=== PATIENT | female | born 1990 | race Caucasian/White ===

== ENCOUNTER 2021-05-10 06:35 | Inpatient (IN) | payer OTHER ==
[2021-05-10] MEDS: DEXTROSE 5%-LACTATED RINGERS 1,000 ML IV SCH (07:35)
[2021-05-10] MEDS ORDERED: AMPICILLIN SODIUM 2 GM VIAL ONE (07:37)
[2021-05-10 08:27] VITALS: BMI 26.8
[2021-05-10] MEDS ORDERED: PROMETHAZINE HCL 25 MG/1 ML VIAL ONE (08:59)
[2021-05-10] MEDS ORDERED: BUTORPHANOL TARTRATE 2 MG/ML VIAL ONE (08:59)
[2021-05-10] MEDS ORDERED: PROMETHAZINE HCL 25 MG/1 ML VIAL IVPUSH ONE (09:02)
[2021-05-10] MEDS ORDERED: BUTORPHANOL TARTRATE 1 MG/ML VIAL IVPUSH ONE (09:02)
[2021-05-10] MEDS ORDERED: AMPICILLIN - 2 GM in SODIUM CHLORIDE 100 ML IVPB ONE (09:04)
[2021-05-10] MEDS ORDERED: OXYTOCIN 20 UNITS in 0.9% NS 20 UNIT/1,000 ML INFUS.BAG IV ONE (09:07)
[2021-05-10] MEDS ORDERED: OXYTOCIN 30 UNITS in 0.9% NS 30 UNIT/500 ML INFUS.BAG IVPB ONE (10:00)
[2021-05-10] MEDS ORDERED: OXYTOCIN 30 UNITS in 0.9% NS 30 UNIT/500 ML INFUS.BAG IVPB SCH (10:15)
[2021-05-10 10:18] LABS: BASO % 0.2 % (0-2.0); EOS % 0.2 % (0-4.5); HEMATOCRIT 31.5 % (32.4-45.2); HEMOGLOBIN 10.4 GM/dL (10.7-15.3); LYMPH % 15.9 % (8-40); MCH 27.5 pg (25.7-33.7); MEAN CELL VOLUME 83.4 fl (80-96); MEAN PLT VOLUME 8.2 fl (7.5-11.1); MONO % 4.2 % (3.8-10.2); NEUT % 79.5 % (42.8-82.8); PLATELET COUNT 367 10^3/uL (134-434); RBC 3.78 M/mm3 (3.60-5.2); RDW 17.1 % (11.6-15.6); WHITE BLOOD COUNT 10.1 K/mm3 (4.0-10.0)
[2021-05-10 10:26] LABS: INR 0.92 (0.83-1.09); PROTHROMBIN TIME (PATIENT) 10.6 SEC (9.7-13.0)
[2021-05-10 10:29] LABS: ACTIVATED PTT 24.4 SECONDS (25.2-36.5)
[2021-05-10 10:37] LABS: CALCIUM 8.5 mg/dL (8.5-10.1)
[2021-05-10 10:38] LABS: BLOOD UREA NITROGEN 11.3 mg/dL (7-18)
[2021-05-10 10:41] LABS: CREATININE 0.6 mg/dL (0.55-1.3)
[2021-05-10] MEDS ORDERED: AMPICILLIN SODIUM 1 GM VIAL ONE (10:41)
[2021-05-10] MEDS ORDERED: AMPICILLIN - 1 GM in SODIUM CHLORIDE 100 ML IVPB ONE (13:02)
[2021-05-10] MEDS ORDERED: ACETAMINOPHEN 325 MG TABLET (FP) PO PRN (13:03)
[2021-05-10] MEDS ORDERED: METHYLERGONOVINE MALEATE 0.2 MG/1 ML AMP IM PRN (13:03)
[2021-05-10] MEDS ORDERED: BENZOCAINE 28 GM HEMORRHOIDAL OINTMENT TP PRN (13:03)
[2021-05-10] MEDS ORDERED: BENZOCAINE 20% 57 GM BOTTLE TP PRN (13:03)
[2021-05-10] MEDS ORDERED: WITCH HAZEL 50% (TUCKS) 40 PAD/JAR PAD TP PRN (13:03)
[2021-05-10] MEDS ORDERED: oxyCODONE HCL 5 MG TABLET PO PRN (13:03)
[2021-05-10] MEDS ORDERED: BISACODYL 10 MG SUPP.RECT RC PRN (13:03)
[2021-05-10] MEDS ORDERED: OXYTOCIN 20 UNITS in 0.9% NS 20 UNIT/1,000 ML INFUS.BAG IV SCH (13:15)
[2021-05-10 13:46] LABS: CORD BASE EXCESS -5.2 mmol/L (0-2); CORD HCO3 22.7 mmHg (20-29); CORD PCO2 53.3 mmHg (30-78); CORD pH 7.248 (7.14-7.44)
[2021-05-10 13:53] LABS: CORD BASE EXCESS -1.5 mmol/L (0-2); CORD HCO3 26.9 mmHg (20-29); CORD PCO2 59.2 mmHg (30-78); CORD pH 7.275 (7.14-7.44)
[2021-05-10] MEDS: IBUPROFEN 600 MG TABLET (FP) PO PRN (18:27)
[2021-05-11] MEDS: IBUPROFEN 600 MG TABLET (FP) PO PRN ×3 (01:49→17:17)
[2021-05-11 08:45] LABS: BASO % 0.2 % (0-2.0); EOS % 0.5 % (0-4.5); HEMATOCRIT 26.6 % (32.4-45.2); HEMOGLOBIN 8.6 GM/dL (10.7-15.3); LYMPH % 22.2 % (8-40); MCH 27.1 pg (25.7-33.7); MCHC 32.4 g/dl (32.0-36.0); MEAN CELL VOLUME 83.5 fl (80-96); MEAN PLT VOLUME 8.3 fl (7.5-11.1); MONO % 6.4 % (3.8-10.2); NEUT % 70.7 % (42.8-82.8); PLATELET COUNT 244 10^3/uL (134-434); RBC 3.19 M/mm3 (3.60-5.2); RDW 16.8 % (11.6-15.6); WHITE BLOOD COUNT 11.1 K/mm3 (4.0-10.0)
[2021-05-11] MEDS ORDERED: DIPHTH,PERTUSS(ACELL),TET 0.5 ML DISP.SYRIN IM ONE (10:00)
[2021-05-11] MEDS ORDERED: SENNOSIDES/DOCUSATE COMBO (SENNA PLUS) TABLET (UD) PO PRN (22:00)
[2021-05-12] MEDS: IBUPROFEN 600 MG TABLET (FP) PO PRN (09:09)
[2021-05-12 09:30] VITALS: BP 112/73; PULSE 67; TEMP 97.6
[2021-05-12] MEDS: DEXTROSE 5%-LACTATED RINGERS 1,000 ML IV SCH (10:15)
== END 2021-05-12 13:00 | disposition home or self-care (01) | DRG 560 ==
LOC: JDEL 06:35 → JLDR 07:30 → J3W 15:15
PROVIDERS: ADMIT Obstetrics & Gynecology; ATTEND Obstetrics & Gynecology
PROC: 10E0XZZ Delivery of Products of Conception, External Approach (ICD-10-PCS; principal; 2021-05-10)
DX: O99.824 Streptococcus B carrier state complicating childbirth (principal); Z3A.38 38 weeks gestation of pregnancy; Z37.0 Single live birth
CPT/HCPCS: 36415; 36600; 59025; 59409; 80048; 82803; 85025; 85610; 85730; 86780; 86850; 86900; 86901; 90715; C9803; U0003; U0005

== ENCOUNTER 2022-04-07 16:59 | Emergency (ER) | payer OTHER ==
[2022-04-07 17:17] VITALS: BP 117/76; PULSE 101; RESP 18; TEMP 98.6; BMI 27.3
[2022-04-07] MEDS ORDERED: ONDANSETRON *ODT* 4 MG TABLET SL ONE (19:19)
[2022-04-07] MEDS ORDERED: ONDANSETRON *ODT* 4 MG TABLET ONE (20:14)
== END 2022-04-07 21:24 | disposition home or self-care (01) ==
LOC: JER 16:59
DX: O26.892 Other specified pregnancy related conditions, second trimester (principal); R05.1 Acute cough; R68.83 Chills (without fever); M79.10 Myalgia, unspecified site; Z3A.16 16 weeks gestation of pregnancy
CPT/HCPCS: 0241U-QW; 99283-25; Q0162